=== PATIENT | female | born 1995 | race Caucasian/White ===

== ENCOUNTER 2021-01-09 04:17 | Emergency (ER) | payer OTHER ==
[2021-01-09 04:57] VITALS: BMI 21.2
[2021-01-09] MEDS ORDERED: METHOCARBAMOL 500 MG TABLET PO ONE (05:18)
[2021-01-09] MEDS ORDERED: LIDOCAINE 5% TOPICAL PATCH TP ONE (05:18)
[2021-01-09] MEDS ORDERED: IBUPROFEN 600 MG TABLET (FP) PO ONE ×2 (05:19→05:27)
[2021-01-09] MEDS ORDERED: LIDOCAINE 5% TOPICAL PATCH ONE (05:27)
[2021-01-09] MEDS ORDERED: METHOCARBAMOL 500 MG TABLET ONE (05:27)
[2021-01-09 07:28] LABS: EPI CELLS 14 /uL (0-25.1); HYALINE CASTS 1 /uL (0-3.1); PH,URINE 5.5 (5.0-8.0); URINE APPEARANCE CLEAR; URINE BACTERIA 487 /uL (0-1359); URINE BILIRUBIN NEGATIVE (NEGATIVE); URINE COLOR YELLOW; URINE GLUCOSE (UA) NEGATIVE (NEGATIVE); URINE KETONE 1+ (NEGATIVE); URINE LEUK ESTERASE 1+ (NEGATIVE); URINE NITRITE NEGATIVE (NEGATIVE); URINE PROTEIN NEGATIVE (NEGATIVE); URINE RBC 5 /uL (0-23.9); URINE UROBILINOGEN 0.2 mg/dL (0.2-1.0); URINE WBC 22 /uL (0-25.8)
[2021-01-09 07:43] VITALS: BP 120/70; PULSE 71; TEMP 98.4
[2021-01-09] MEDS ORDERED: CEPHALEXIN MONOHYDRATE 500 MG CAPSULE (UD) PO ONE (07:57)
[2021-01-09 08:11] LABS: HCG,QUALITATIVE URINE Negative
[2021-01-09] MEDS ORDERED: LIDOCAINE PATCH REMOVAL MC SCH (22:00)
== END 2021-01-09 08:25 | disposition home or self-care (01) ==
LOC: JER 04:17
DX: M54.5 Low back pain (principal)
CPT/HCPCS: 81003; 84703; 99283-25